=== PATIENT | female | born 1985 | race Caucasian/White ===

== ENCOUNTER 2019-11-03 01:01 | Outpatient (CLI) | payer OTHER, SELFPAY ==
[2019-11-03 17:34] LABS: SARS-CoV-2 RNA PCR Negative
== END 2019-11-03 01:02 | disposition home or self-care (01) ==
LOC: ANHCOVIDDT 01:02
PROVIDERS: PCP Family Medicine; Visit Provider Obstetrics & Gynecology
DX: Z01.812 Encounter for preprocedural laboratory examination (principal); Z11.59 Encounter for screening for other viral diseases
CPT/HCPCS: 87635; C9803; U0003

== ENCOUNTER 2019-11-03 08:37 | Outpatient (CLI) | payer OTHER, SELFPAY ==
[2019-11-03 09:19] LABS: Basophils Percent Auto 0.5 % (0.2-1.2); Eosinophils Absolute Auto 0.1 K/mm3 (0-0.3); Eosinophils Percent Auto 1.8 % (0-4.4); Hematocrit 42.9 % (37.0-47.0); Hemoglobin 14.9 g/dL (12.0-15.0); Immature Granulocyte Absolute 0.01 K/mm3 (0.00-0.031); Immature Granulocyte Percent A 0.2 % (0-0.5); Lymphocytes Absolute Auto 2.25 K/mm3 (0.9-3.2); Lymphocytes Percent Auto 34.5 % (18.3-44.2); Mean Corpuscular HGB Conc 34.7 g/dl (32-36); Mean Corpuscular Hemoglobin 30.5 pg (26-34); Mean Corpuscular Volume 87.9 fl (80-100); Mean Platelet Volume 10.1 fl (7.4-10.4); Monocytes Absolute Auto 0.6 K/mm3 (0.1-0.6); Monocytes Percent Auto 8.6 % (2.6-8.5); Neutrophils Absolute Auto 3.6 K/mm3 (1.3-6.7); Neutrophils Percent Auto 54.4 % (45.5-73.1); Platelet Count Result 262 k/mm3 (150-375); Red Blood Count 4.88 M/mm3 (4.2-5.4); Red Cell Distribution Width 12.2 % (11.5-14.5); White Blood Count 6.5 K/mm3 (4.5-10.0)
== END 2019-11-03 08:38 | disposition home or self-care (01) ==
PROVIDERS: PCP Family Medicine; Visit Provider Obstetrics & Gynecology
DX: R10.2 Pelvic and perineal pain (principal); Z01.812 Encounter for preprocedural laboratory examination
CPT/HCPCS: 36415; 85025; 86850; 86900; 86901

== ENCOUNTER 2019-11-05 01:23 | Day surgery (SDC) | payer OTHER, SELFPAY ==
[2019-10-25 13:12] VITALS: BMI 31.8
--- NOTE | 2019-11-03 07:35 | PM.IMHP ---
H&P: HPI History of Present Illness Chief complaint: Enlarged Uterus/ Pelvic Pain Narrative: Christina Reilly is a 34 year old female is admitted for robotic hysterectomy and bilateral salpingectomy. She has a uterine prolapse secondary to many previous deliveries. She has pain with any large uterus who has opted for hysterectomy. Risks and benefits were reviewed including but not exclusive of , aspiration pneumonia, bleeding, transfusion, perforation injury to bowel, bladder, ureters, or other internal organs with need for open laparotomy. She voiced good understanding. She read the [employer] handout entitled hysterectomy as well as the [facility] handout. She asked to proceed Review of Systems Review of Systems: All systems reviewed & are unremarkable except as noted in HPI and below PMFSH Social History Social History Smoking status: Never smoker Alcohol intake: current Meds Home Medications and Allergies Home Medications Medication Instructions Recorded Confirmed Type No Home Medications 10/25/19 10/25/19 History Allergies Allergy/AdvReac Type Severity Reaction Status Date / Time Cephalosporins Allergy Severe Anaphylaxis Verified 10/25/19 13:05 Penicillins Allergy Severe Anaphylaxis Verified 10/25/19 13:05 pomegranate Allergy Severe Anaphylaxis Verified 10/25/19 13:05 vancomycin Allergy Intermediate Itching Verified 10/25/19 13:05 Exam Const: General: no acute distress Eyes: General: appearance normal, both eyes and all related structures Neck: Neck: supple and no JVD Thyroid: thyroid normal Resp: Effort & Inspection: normal respiratory effort Auscultation: clear to auscultation bilaterally Cardio: Rate: regular rate Rhythm: regular rhythm GI: Inspection: non-distended GI Palp: Yes Soft to palpation, No Tenderness to palpation present (GI) and No Guarding due to palpation present (GI) Auscultation: normal bowel sounds : General: Yes bladder normal to inspection External Female Exam: normal external appearance Speculum Exam - Vagina: normal appearance of the vagina Speculum Exam - Cervix: Patulous cervix present Bimanual exam- vagina & uterus: enlarged and Uterus displaced ( second-degree prolapse is noted) Skin: General skin exam: no rashes or lesions noted Extrem: General: normal to inspection and no edema Psych: Mental Status: mental status grossly normal Affect: normal affect Assessment and Plan Additional Plan impression: Enlarged uterus with prolapse Plan: Robotic total vaginal hysterectomy and bilateral salpingectomy
[2019-11-05] VITALS (18 sets, daily range): BP systolic 110–140; BP diastolic 56–84; PULSE 56–97; RESP 11–24; TEMP 35.9–37.2; O2SAT 92–100
--- NOTE | 2019-11-05 06:43 | WPDHPUPDATE1 ---
History and Physical Update Update Date/Time: 11/05/19 06:43 History and Physical has been reviewed, including an updated exam of the patient. There are NO changes in the patient's condition. Risks, benefits, and alternatives have been discussed and questions answered. Patient agrees to proceed with procedure.
--- NOTE | 2019-11-05 07:07 | WPDANESEPPF ---
Anes - Initial Pre Proc Eval Procedure: Operation Date: 11/05/19 07:30 Proposed Procedures p Robotic Assisted Total Vaginal Hysterectomy With Bilateral Salpingectomy - Jani San MD Date/Time: 11/05/19 07:07 Surgeon: Jani San MD Pre Op Diagnosis: Enlarged Uterus/ Pelvic Pain Patient Data Age: 34 Gender: F Height: 1.63 m Weight: 84 kg Allergies Allergy/AdvReac Type Severity Reaction Status Date / Time Cephalosporins Allergy Severe Anaphylaxis Verified 10/25/19 13:05 Penicillins Allergy Severe Anaphylaxis Verified 10/25/19 13:05 pomegranate Allergy Severe Anaphylaxis Verified 10/25/19 13:05 vancomycin Allergy Intermediate Itching Verified 10/25/19 13:05 Home Medications Medication Instructions Recorded Confirmed Type hydrocodone-acetaminophen [[place]] 1 tablet PO Q4H PRN #30 tablet 11/05/19 Rx Patient hx anesthesia problems: none Family hx anesthesia problems: none PMFSH Past Medical History Medical History (Updated 11/05/19 @ 07:08 by Mina Christian MD) Mitral valve prolapse Obesity Uterine prolapse Social History Social History Smoking status: Never smoker Alcohol intake: current Anes - Eval Final PreProcedure Day of Procedure 11/05/19 07:07 Patient weight: obese Heart: regular rate and rhythm Lungs: clear to auscultation and normal air movement Airway: Mallampati scale class II Neurological: alert and oriented Last oral intake: >/= 8 hours ASA classification: II Emergent: no Anesthetic plan: proceed Anesthesia type and monitoring: general ETT Informed Consent: The patient's anesthetic plan and its attendant risks and benefits were discussed with the patient/family/POA. Questions were solicited and answers provided to the satisfaction of the patient/family/POA.
[2019-11-05] MEDS: LACTATED RINGERS 1,000 ML 30 ML IV CONT ×2 (07:17→08:54)
[2019-11-05] MEDS: CLINDAMYCIN 900 MG/NS 50 ML 900 MG/50 ML PIGGYBACK 50 MG IVPB (07:23)
[2019-11-05] MEDS: GENTAMICIN SULFATE INJ 330 MG in DEXTROSE 5% 100 ML 100 MG IVPB (07:35)
[2019-11-05] MEDS: KETOROLAC 30 MG/ML VIAL (*BKC) IV PUSH ×2 (08:00→13:49)
--- NOTE | 2019-11-05 08:45 | PM.PROC ---
Procedure Note - Detailed Date of procedure: 11/05/19 Pre-op diagnosis: Enlarged Uterus/ Pelvic Pain Surgeon: Jani San MD Postop diagnosis: Enlarged uterus/pelvic pain Procedure: Robotic total vaginal hysterectomy and bilateral salpingectomies Anesthesia: General endotracheal EBL: 25cc Complications: Findings: Enlarged uterus. Normal-appearing ovaries and tubes Description of the procedure: The patient was prepped draped in the sterile fashion placed in the dorsal lithotomy position. Under excellent general trach anesthesia weighted speculum placed in posterior fornix of vagina. Anterior lip of the cervix was grasped with single-tooth tenaculum. Uterus sounded to 10cm. Serial dilatation with fragmented dilators performed. The 10. Cold cup at the 3 and half CECILIA was placed in the uterus for uterine manipulation. Next the 16 [place] catheter was placed and drained. Gloves were changed. A supraumbilical incision made the Veress needle passed abdomen. The abdomen was filled with CO2 gas 15mmHg. The 8mm trocar was then advanced in the abdomen the downside was visualized. No injury seen the patient placed in Trendelenburg. Right and left lateral quadrant incision made the 8mm trocars advanced under direct visualization assuring no injury. A right upper quadrant incision made in the 10mm trocar advanced under direct visualization. No injury seen robot was docked Attention was turned to the console. The above findings were noted. The left round ligament was grasped, burned, cut. Anteriorly a bladder flap was formed by sharply dissecting across the uterine cervix and reflecting the bladder distally from the uterus and cervix to the opposite round ligament. This was then clamped, burned, cut. Next the left fallopian tube was teased away from the ovary and brought to its insertion into the uterus this was repeated on the contralateral side to remove the right tube. Next the utero-ovarian ligament was serially skeletonized, clamped, burned, cut and brought to the level of the previously cut round ligament this was repeated on the opposite side conserving the right ovary. The left cardinal and broad ligaments were then serially skeletonized down the lateral edge of the uterus and cervix by clamping cutting and burning. Blood vessels on the left were noted to be tortuous and large these were serially skeletonized after individualized them. They were clamped, burned, cut and brought down to the uterine cervix. In like fashion the cardinal and broad ligaments on the right were serially skeletonized, clamped, burned, cut and brought down to the uterine vessels on the right these were also large and tortuous and individually clamped, burned, cut. Excellent blanching of the cervix and uterus were noted. A colpotomy incision was made and the cervix uterus and tubes removed through the vagina. Blood loss was estimated 25cc. The vagina was closed with continuous running 0V lock from lateral edge to lateral edge and back to the midline. Irrigation was undertaken until clear. Hematuria was placed over the raw surface areas and excellent hemostasis was seen. The robot was undocked. The gas removed from the abdomen. The trocar sites removed and the incisions closed with 4 O Monocryl and glue. The patient was awakened. All sponge, needle, instrument counts were correct. There were no immediate complications
--- NOTE | 2019-11-05 09:52 | SUR.PHASEI ---
PT C/O'ING BEING COLD. WARM BLANKETS X 2 APPLIED. AWAITING CALL BACK FROM 2ND FLOOR OB.
[2019-11-05] MEDS: DEXTROSE 5%/LACTATED RINGERS 1,000 ML 125 ML IV CONT (10:43)
[2019-11-05] MEDS: MORPHINE SULFATE 4 MG/ML INJ IV PUSH (10:52)
[2019-11-05] MEDS: ENOXAPARIN 40 MG/0.4 ML SYRINGE SUB-Q (13:50)
[2019-11-05] MEDS: SIMETHICONE 80 MG TAB.CHEW PO (13:51)
[2019-11-05] MEDS: ONDANSETRON INJ 4 MG/2 ML VIAL IV PUSH (17:52)
[2019-11-05] MEDS: IBUPROFEN 600 MG TABLET PO (23:37)
[2019-11-06 04:00] VITALS: BP 112/61; PULSE 75; RESP 17; TEMP 36.7
[2019-11-06] MEDS: SIMETHICONE 80 MG TAB.CHEW PO ×3 (04:27→11:53)
[2019-11-06 05:34] LABS: Basophils Percent Auto 0.3 % (0.2-1.2); Eosinophils Percent Auto 0.3 % (0-4.4); Hematocrit 37.8 % (37.0-47.0); Hemoglobin 12.8 g/dL (12.0-15.0); Immature Granulocyte Absolute 0.06 K/mm3 (0.00-0.031); Immature Granulocyte Percent A 0.5 % (0-0.5); Lymphocytes Absolute Auto 3.09 K/mm3 (0.9-3.2); Lymphocytes Percent Auto 23.6 % (18.3-44.2); Mean Corpuscular HGB Conc 33.9 g/dl (32-36); Mean Corpuscular Hemoglobin 30.5 pg (26-34); Mean Corpuscular Volume 90.2 fl (80-100); Mean Platelet Volume 10.5 fl (7.4-10.4); Monocytes Percent Auto 7.8 % (2.6-8.5); Neutrophils Absolute Auto 8.8 K/mm3 (1.3-6.7); Neutrophils Percent Auto 67.5 % (45.5-73.1); Platelet Count Result 224 k/mm3 (150-375); Red Blood Count 4.19 M/mm3 (4.2-5.4); Red Cell Distribution Width 12.4 % (11.5-14.5); White Blood Count 13.1 K/mm3 (4.5-10.0)
--- NOTE | 2019-11-06 07:20 | P.DS_ITS ---
DS: Admitting Diagnosis Admitting Diagnosis Admitting Diagnosis: Pelvic and perineal pain DS: Summary Time Spent with Patient Time attestation: Total time spent providing and/or coordinating discharge services: Exam Const: General: no acute distress Eyes: General: appearance normal, both eyes and all related structures Neck: Neck: supple and no JVD Thyroid: thyroid normal Resp: Effort & Inspection: normal respiratory effort Auscultation: clear to auscultation bilaterally Cardio: Rate: regular rate Rhythm: regular rhythm GI: Inspection: non-distended GI Palp: Yes Soft to palpation, No Tenderness to palpation present (GI) and No Guarding due to palpation present (GI) Auscultation: normal bowel sounds : General: Yes bladder normal to palpation External Female Exam: normal external appearance Speculum Exam - Vagina: normal vaginal discharge and No vaginal bleeding Speculum Exam - Cervix: nontender Bimanual exam- vagina & uterus: bladder normal to palpation and No Cervical tenderness present OB/external & speculum: No vaginal bleeding Skin: General skin exam: no rashes or lesions noted Extrem: General: normal to inspection and no edema Psych: Mental Status: mental status grossly normal Affect: normal affect DS: Data Data Completed and Pending Pending studies at discharge: Pending at discharge 11/05/19 07:55 Surgical [PTH] Routine Labs on day of discharge: Labs from last 24 hours 11/06/19 04:10 WBC 13.1 H RBC 4.19 L Hgb 12.8 Hct 37.8 MCV 90.2 MCH 30.5 MCHC 33.9 RDW 12.4 Plt Count 224 MPV 10.5 H Immature Gran % (Auto) 0.5 Neut % (Auto) 67.5 Lymph % (Auto) 23.6 [place] % (Auto) 7.8 Eos % (Auto) 0.3 Baso % (Auto) 0.3 Lymph # (Auto) 3.09 [place] # (Auto) 1.0 H Eos # (Auto) 0.0 Baso # (Auto) 0.0 Abs Immat Gran (auto) 0.06 H Absolute Neuts (auto) 8.8 H Absolute Nucleated RBC 0.0 Nucleated RBC % 0.0 Discharge Plan Discharge Patient Disposition: Home, Self-Care Stand Alone Forms: General Discharge Instructions Follow-up/Referrals: Jani San MD [Physician] - Discharge Medications: New hydrocodone-acetaminophen [[place]] 5-325 mg tablet 1 tablet PO Q4H PRN (Reason: pain) Qty: 30 RF: 0
--- NOTE | 2019-11-06 07:21 | P.PNOB_ITS ---
OB - PN: Subj Subjective Date/time seen: 11/06/19 07:21 Patient comments: no complaints and pain well controlled OB - PN: Obj Data Labs CBC & Chem 7: 11/06/19 04:10 Labs: Laboratory Results - last 24 hr 11/06/19 04:10 WBC 13.1 H RBC 4.19 L Hgb 12.8 Hct 37.8 MCV 90.2 MCH 30.5 MCHC 33.9 RDW 12.4 Plt Count 224 MPV 10.5 H Immature Gran % (Auto) 0.5 Neut % (Auto) 67.5 Lymph % (Auto) 23.6 [place] % (Auto) 7.8 Eos % (Auto) 0.3 Baso % (Auto) 0.3 Lymph # (Auto) 3.09 [place] # (Auto) 1.0 H Eos # (Auto) 0.0 Baso # (Auto) 0.0 Abs Immat Gran (auto) 0.06 H Absolute Neuts (auto) 8.8 H Absolute Nucleated RBC 0.0 Nucleated RBC % 0.0 OB - PN A/P Plan day: 1 Plan: routine care, discharge home and follow up 6 weeks (2 weekks) Time Spent With Patient Time: Total time spent is greater than 50% in coordination of care (as documented) at patient's floor/unit and/or counseling patient: Time with patient: less than 15 minutes Review of Systems Review of Systems: All systems reviewed & are unremarkable except as noted in HPI and below Exam Const: General: no acute distress Eyes: General: appearance normal, both eyes and all related structures Neck: Neck: supple and no JVD Thyroid: thyroid normal Resp: Effort & Inspection: normal respiratory effort Auscultation: clear to auscultation bilaterally Cardio: Rate: regular rate Rhythm: regular rhythm GI: Inspection: normal to inspection and incision (cdi) : General: Yes bladder normal to palpation External Female Exam: normal external appearance Speculum Exam - Vagina: normal vaginal discharge and No vaginal bleeding Speculum Exam - Cervix: nontender Bimanual exam- vagina & uterus: bladder normal to palpation and No Cervical tenderness present OB/external & speculum: No vaginal bleeding Skin: General skin exam: no rashes or lesions noted Extrem: General: normal to inspection and no edema Psych: Mental Status: mental status grossly normal Affect: normal affect
--- NOTE | 2019-11-06 07:23 | PM.DS ---
DS: Admitting Diagnosis Admitting Diagnosis Admitting Diagnosis: Pelvic and perineal pain DS: Summary Time Spent with Patient Time attestation: Total time spent providing and/or coordinating discharge services: DS: Data Data Completed and Pending Pending studies at discharge: Pending at discharge 11/05/19 07:55 Surgical [PTH] Routine Labs on day of discharge: Labs from last 24 hours 11/06/19 04:10 WBC 13.1 H RBC 4.19 L Hgb 12.8 Hct 37.8 MCV 90.2 MCH 30.5 MCHC 33.9 RDW 12.4 Plt Count 224 MPV 10.5 H Immature Gran % (Auto) 0.5 Neut % (Auto) 67.5 Lymph % (Auto) 23.6 [place] % (Auto) 7.8 Eos % (Auto) 0.3 Baso % (Auto) 0.3 Lymph # (Auto) 3.09 [place] # (Auto) 1.0 H Eos # (Auto) 0.0 Baso # (Auto) 0.0 Abs Immat Gran (auto) 0.06 H Absolute Neuts (auto) 8.8 H Absolute Nucleated RBC 0.0 Nucleated RBC % 0.0 Discharge Plan Discharge Patient Disposition: Home, Self-Care Stand Alone Forms: General Discharge Instructions Follow-up/Referrals: Jani San MD [Physician] - Discharge Medications: New hydrocodone-acetaminophen [[place]] 5-325 mg tablet 1 tablet PO Q4H PRN (Reason: pain) Qty: 30 RF: 0
[2019-11-06] MEDS: DOCUSATE SODIUM 100 MG CAPSULE PO (08:18)
[2019-11-06] MEDS: IBUPROFEN 600 MG TABLET PO ×2 (08:19→14:11)
[2019-11-06] MEDS: ENOXAPARIN 40 MG/0.4 ML SYRINGE SUB-Q (08:21)
--- NOTE | 2019-11-06 09:34 | P.PNAN_ITS ---
Anes - Prog Note Post-Op Date/Time: 11/06/19 09:34 Cardiovascular status: normal Respiratory status: normal Airway patency: baseline Mental status: baseline Post-Op hydration status: normal Vital Signs: Last Vital Signs Temp 36.7 C 11/06/19 04:00 Pulse 75 11/06/19 04:00 Resp 17 11/06/19 04:00 BP 112/61 11/06/19 04:00 Pulse Ox 97 11/05/19 14:00 Pain Score (VAS): 0/10. Patient resting in bed at time of assessment, nausea with relief with PRN medication. I/O: Intake & Output 11/05/19 11/06/19 11/06/19 23:59 07:59 15:59 Intake Total 550 1250 Output Total 400 1950 Balance 150 -700 Laboratory Tests 11/06/19 04:10 11/06/19 04:10 WBC 13.1 H RBC 4.19 L Hgb 12.8 Hct 37.8 MCV 90.2 MCH 30.5 MCHC 33.9 RDW 12.4 Plt Count 224 MPV 10.5 H Immature Gran % (Auto) 0.5 Neut % (Auto) 67.5 Lymph % (Auto) 23.6 [place] % (Auto) 7.8 Eos % (Auto) 0.3 Baso % (Auto) 0.3 Lymph # (Auto) 3.09 [place] # (Auto) 1.0 H Eos # (Auto) 0.0 Baso # (Auto) 0.0 Abs Immat Gran (auto) 0.06 H Absolute Neuts (auto) 8.8 H Absolute Nucleated RBC 0.0 Nucleated RBC % 0.0 Post-procedural complaints: none Patient Feedback: Patient satisfied with anesthetic care.
[2019-11-06 10:00] VITALS: BP 116/77; PULSE 65; RESP 16; TEMP 37.1; O2SAT 98
== END 2019-11-06 14:50 | disposition home or self-care (01) ==
LOC: ANHSURGERY 06:44 → ANHOB2 10:24
PROVIDERS: PCP Family Medicine; Visit Provider Obstetrics & Gynecology
PROC: (CPT 58552; principal; 2019-11-05 07:30)
DX: R10.2 Pelvic and perineal pain (principal); N80.0 Endometriosis of uterus; N83.8 Other noninflammatory disorders of ovary, fallopian tube and broad ligament; I34.1 Nonrheumatic mitral (valve) prolapse; E66.9 Obesity, unspecified; Z68.31 Body mass index [BMI] 31.0-31.9, adult
CPT/HCPCS: 58552; S2900; 36415; 85025; 88307; 99199; A9270; J1100; J1580; J1650; J1885; J2250; J2270; J2405; J2704; J2710; J3010; J7030; J7120; J7121

== ENCOUNTER 2021-01-23 11:51 | Outpatient (CLI) | payer OTHER, SELFPAY ==
--- NOTE | ~2021-01-23 | XR_ITS ---
XR hip RT min 2V DATE: 01/23/2021 12:10 INDICATION: Right hip pain. Low back pain. TECHNIQUE: AP and lateral views COMPARISON: None FINDINGS: No fracture or dislocation, avascular necrosis or bone destruction of the right hip. Right hip joint space appears well preserved. The pubic symphysis and right sacroiliac joint are intact. IMPRESSION: Negative Reviewed, dictated and finalized at location A. IMPRESSION: Negative
--- NOTE | ~2021-01-23 | XR_ITS ---
XR lumbar spine 2-3V DATE: 01/23/2021 12:10 INDICATION: Chronic low back pain. No injury. TECHNIQUE: AP, lateral, coned lateral lumbosacral views COMPARISON: None FINDINGS: There is minimal dextroscoliosis. There are 4 functional lumbar vertebrae. There is a transitional lumbosacral vertebra. No fracture, spondylolisthesis or bone destruction. The included lower thoracic and lumbar pedicles a re intact. The sacroiliac joints appear normal. Status post cholecystectomy. 5.6 x 13.6 mm calcification overlies the proximal right ureter. This was not present on 02/03/2007. Di fference diagnosis includes an opacity within the bowel lumen versus large calcified right ureteropel amber calculus. There are small calcifications overlying the lower pole of each kidney; bilateral nephrolithiasis is suggested. Noncontrast CT abdomen pelvis examination would be more accurate for detection of any urin rajesh tract calculi. There is a prominent amount of fecal material in the colon but no apparent bowel obstruction. The psoas shadows are intact. No visceromegaly is noted. IMPRESSION: Cannot exclude bilateral nephrolithiasis or large right ureteropelvic calcified calculus Status post cholecystectomy Transitional lumbosacral vertebra Reviewed, dictated and finalized at location A. IMPRESSION: Cannot exclude bilateral nephrolithiasis or large right ureteropelv ic calcified calculus Status post cholecystectomy Transitional lumbosacral vertebra
--- NOTE | ~2021-01-23 | XR_ITS ---
XR hip LT min 2V DATE: 01/23/2021 12:11 INDICATION: Left hip pain. Low back pain. TECHNIQUE: AP and lateral views of left hip COMPARISON: None FINDINGS: The pubic symphysis and sacroiliac joints appear normal. No fracture, dislocation, avascular necrosis or bone destruction of the left hip. Left hip joint spac e appears well preserved. IMPRESSION: Negative Reviewed, dictated and finalized at location A. IMPRESSION: Negative
== END 2021-01-23 11:52 | disposition home or self-care (01) ==
PROVIDERS: PCP Family Medicine; Visit Provider Nurse Practitioner Family
DX: M25.551 Pain in right hip (principal); M25.552 Pain in left hip; Z90.49 Acquired absence of other specified parts of digestive tract
CPT/HCPCS: 72100; 73502; 73521

== ENCOUNTER 2021-01-29 13:34 | Outpatient (CLI) | payer OTHER, SELFPAY ==
--- NOTE | ~2021-01-29 | CT_ITS ---
EXAMINATION: CT abdomen pelvis wo con EXAM DATE: 01/29/2021 13:51 INDICATION: N20.1 - Calculus of ureter. TECHNIQUE: Spiral CT of the abdomen and pelvis was performed without contrast. Axial, coronal and s agittal images of the abdomen and pelvis were reviewed. The dose-length product (DLP) for this exami nation was 354.50 mGy-cm. The exposure was tailored according to patient size (auto mA exposure cont rol), and iterative reconstruction (ASIR) was used as additional dose reduction technique. Comparison is made to prior examination from 01/14/2017. FINDINGS: The liver, spleen, adrenal glands and pancreas are unremarkable. There are cholecystectomy clips. There is right ureteropelvic junction stone measuring up to 10 mm on coronal image. There is mild to moderate right-sided hydronephrosis. Additional bilateral calyceal stones up to 4 mm in size . The uterus is not identified and has likely been surgically resected. The bladder is unremarkable . There is no retroperitoneal or pelvic lymphadenopathy. There are no findings to suggest appendicitis. The stomach and small bowel are unremarkable. There is moderate amount of colonic stool. No free intraperitoneal gas. The heart is normal in size. T here are no pericardial or pleural effusions. The lung bases are unremarkable. There are no osteobl astic or osteolytic lesions identified. IMPRESSION: 1. Right UPJ 10 mm stone, mild to moderate hydronephrosis. 2. Bilateral nephrolithiasis. I discussed kidney stones with JAMES Shukla at 01/30/2021 10:09 CDT. Reviewed, dictated and finalized at location B.
== END 2021-01-29 13:35 | disposition home or self-care (01) ==
LOC: ANHIMG 13:36
PROVIDERS: PCP Family Medicine; Visit Provider Nurse Practitioner Family
DX: N20.2 Calculus of kidney with calculus of ureter (principal)
CPT/HCPCS: 74176

== ENCOUNTER 2021-02-22 07:57 | Outpatient (CLI) | payer OTHER, SELFPAY ==
--- NOTE | ~2021-02-22 | XR_ITS ---
EXAMINATION: XR abdomen/kub 1V EXAM DATE: 02/22/2021 08:30 INDICATION: RT renal kidney stones . TECHNIQUE: Frontal projection of the upper abdomen, frontal projection lower abdomen/pelvis for inter pretation. Correlation is made to CT abdomen pelvis from 01/29/2021. FINDINGS: Prior CT had 10 mm UPJ stone. There is no calcification identified in this location on thi s examination. There are smaller bilateral kidney stones. Nonobstructive bowel gas pattern with moder ate amount of colonic stool. There is no organomegaly. There are cholecystectomy clips. There are no osseous abnormalities identified. IMPRESSION: Bilateral nephrolithiasis. Reviewed, dictated and finalized at location A. IMPRESSION: Bilateral nephrolithiasis.
== END 2021-02-22 07:58 | disposition home or self-care (01) ==
LOC: ANHIMG 07:59
PROVIDERS: PCP Family Medicine; Visit Provider Urology
DX: N20.0 Calculus of kidney (principal)
CPT/HCPCS: 74018

== ENCOUNTER 2021-03-05 11:30 | Outpatient (CLI) | payer OTHER, SELFPAY ==
--- NOTE | ~2021-03-05 | XR_ITS ---
EXAMINATION: XR abdomen/kub 1V INDICATION: Right flank pain TECHNIQUE: Supine views of the abdomen were obtained on 2 radiographs. COMPARISON: 02/22/[address] from today FINDINGS: A 6 mm stone has migrated from the right kidney lower pole to the proximal ureter just belo w the right L3 transverse process. There is an unchanged 4 mm stone of the left kidney. Cholecystecto my clips are noted. The lung bases are clear. A moderate volume of colonic stool is present. IMPRESSION: 1. 6 mm stone in the proximal right ureter. 2. Left nephrolithiasis. Reviewed, dictated and finalized at location A.
== END 2021-03-05 11:31 | disposition home or self-care (01) ==
LOC: ANHIMG 11:32
PROVIDERS: PCP Family Medicine; Visit Provider Urology
DX: N20.2 Calculus of kidney with calculus of ureter (principal)
CPT/HCPCS: 74018

== ENCOUNTER 2021-03-05 14:25 | Outpatient (CLI) | payer OTHER, SELFPAY ==
--- NOTE | ~2021-03-05 | CT_ITS ---
EXAMINATION: CT abdomen pelvis wo con DATE: 03/05/2021 14:47 INDICATION: Right flank pain TECHNIQUE: Computed tomography (CT) of the abdomen and pelvis was performed without intravenous contr ast. The dose-length product (DLP) was 939.66 mGy-cm. Automated exposure control and iterative recons truction technique were employed. COMPARISON: 01/29/2021 FINDINGS: The lung bases are clear. The heart size is normal. The gallbladder is surgically absent. T he liver, spleen, pancreas, and adrenal glands are normal. There is a 4 mm stone of the proximal righ t ureter which causes mild hydronephrosis. Nonobstructing stones of the right kidney measure up to 5 mm. Nonobstructing stones of the left kidney measure up to 6 mm. No pathologically enlarged abdominal or pelvic lymph nodes are identified. There is no free intraperitoneal gas or evidence of bowel obst ruction. The appendix is normal. IMPRESSION: 1. 4 mm stone of the proximal right ureter causing mild hydronephrosis. 2. Bilateral nonobstructing nephrolithiasis. Reviewed, dictated and finalized at location A.
== END 2021-03-05 14:26 | disposition home or self-care (01) ==
LOC: ANHIMG 14:25
PROVIDERS: PCP Family Medicine; Visit Provider Nurse Practitioner Adult Health
DX: R10.9 Unspecified abdominal pain (principal); N20.2 Calculus of kidney with calculus of ureter
CPT/HCPCS: 74018; 74176

== ENCOUNTER 2021-03-06 01:22 | Day surgery (SDC) | payer OTHER, SELFPAY ==
[2021-03-05 15:55] VITALS: BMI 33.5
[2021-03-06] VITALS (9 sets, daily range): BP systolic 124–143; BP diastolic 80–96; PULSE 53–97; RESP 12–16; TEMP 36.2–37.1; O2SAT 94–99
--- NOTE | ~2021-03-06 | XR_ITS ---
EXAMINATION: XR retrograde pyelo w/stent RT EXAM DATE: 03/06/2021 14:10 INDICATION: Right-sided retrograde stent placement. TECHNIQUE: Fluoroscopy used during XR retrograde pyelo w/stent RT performed by Dr. Delroy collins MD, urologist. The radiologist Nile Silveira M.D. dictating this report of the image(s) availabl e was not present for the procedure. Total fluoroscopic time of 37 seconds. The DAP for this proced ure was 596 radcm2. A total of 15 images sent to PACS from the exam. FINDINGS: Images demonstrate cannulation of the right ureter, retrograde pyelogram demonstrating mil d hydronephrosis. Cholecystectomy clips. One image demonstrates proximal loop of a double-J ureteral stent. Correlate with procedure note. IMPRESSION: Fluoroscopy used during XR retrograde pyelo w/stent RT. Reviewed, dictated and finalized at location B.
--- NOTE | 2021-03-06 08:00 | P.PNAN_ITS ---
Anes - Initial Pre Proc Eval Procedure: Operation Date: 03/06/21 14:00 Proposed Procedures p Cystoscopy, Right Ureteroscopy with Stone Extraction, Possible Right Retrograde Pyelogram, Possible Right Stent Placement, - Delroy Shah MD s Possible Holmium Laser Procedure - Delroy Shah MD Date/Time: 03/06/21 08:00 Surgeon: Delroy Shah MD Pre Op Diagnosis: right proximal ureteral stone Patient Data Age: 35 Gender: F Height: 1.63 m Weight: 88.45 kg Allergies Allergy/AdvReac Type Severity Reaction Status Date / Time Cephalosporins Allergy Severe Anaphylaxis Verified 03/06/21 12:46 Penicillins Allergy Severe Anaphylaxis Verified 03/06/21 12:46 pomegranate Allergy Severe Anaphylaxis Verified 03/06/21 12:46 vancomycin Allergy Intermediate Itching Verified 03/06/21 12:46 Home Medications Medication Instructions Recorded Confirmed Type lorazepam 0.5 mg tablet 0.5 mg PO BID PRN #30 tablet 11/17/20 03/05/21 Rx acetaminophen 300 mg-codeine 15 mg 1 tablet PO BID PRN #30 tablet 01/23/21 03/05/21 Rx tablet fexofenadine [Rosangela] 180 mg PO HS 03/05/21 03/05/21 History sertraline 100 mg PO HS 03/05/21 03/05/21 History tramadol 50 mg PO Q6H PRN 03/05/21 03/05/21 History Patient hx anesthesia problems: post op nausea/vomiting Family hx anesthesia problems: none Results Review: All pre-operative results and documents have been reviewed as part of the pre-operative evaluation. [facility] Past Medical History Medical History (Updated 03/06/21 @ 08:00 by Dennis Mccarthy DO) Anxiety Mitral valve prolapse Obesity PONV (postoperative nausea and vomiting) Uterine prolapse Surgical History Surgical History (Updated 03/06/21 @ 08:00 by Dennis Mccarthy DO) History of cholecystectomy History of hysterectomy Social History Social History Smoking status: Never smoker Alcohol intake: never Substance use: never Substance use type: does not use Living arrangements: with family Additional occupation/education comments: Stay at home mom Gender identity (if verbalized by the patient): Female Sexual Orientation (if Verbalized by the Patient): Straight or Heterosexual Spiritual care concerns: No Anes - Eval Final PreProcedure Day of Procedure 03/06/21 08:00 Patient weight: obese Heart: regular rate and rhythm Lungs: clear to auscultation and normal air movement Airway: Mallampati scale class II Neurological: alert and oriented Last oral intake: >/= 8 hours ASA classification: II Emergent: no Anesthetic plan: proceed Anesthesia type and monitoring: general LMA and standard monitoring Results Review: All pre-operative results and documents have been reviewed as part of the pre-operative evaluation. Informed Consent: The patient's anesthetic plan and its attendant risks and benefits were discussed with the patient/family/POA. Questions were solicited and answers provided to the satisfaction of the patient/family/POA.
[2021-03-06] MEDS: LACTATED RINGERS 1,000 ML 30 ML IV CONT ×2 (12:30→14:13)
[2021-03-06] MEDS: SCOPOLAMINE 1.5 MG PATCH TRANSDERM (13:02)
--- NOTE | 2021-03-06 13:11 | P.HP_ITS ---
H&P: HPI History of Present Illness Date/Time: 03/06/21 13:11 Chief Complaint: right ureteral calculus Narrative: 35 year old with obstructing 4-6 mm right proximal ureteral calculus. Presents for intervention today. Review of Systems Review of Systems: All systems reviewed & are unremarkable except as noted in HPI and below [facility] Past Medical History Medical History Anxiety Mitral valve prolapse Obesity PONV (postoperative nausea and vomiting) Uterine prolapse Surgical History Surgical History (Updated 03/06/21 @ 08:00 by Dennis Mccarthy DO) History of cholecystectomy History of hysterectomy Social History Social History Smoking status: Never smoker Alcohol intake: never Substance use: never Substance use type: does not use Living arrangements: with family Additional occupation/education comments: Stay at home mom Gender identity (if verbalized by the patient): Female Sexual Orientation (if Verbalized by the Patient): Straight or Heterosexual Spiritual care concerns: No Meds Home Medications and Allergies Home Medications Medication Instructions Recorded Confirmed Type lorazepam 0.5 mg tablet 0.5 mg PO BID PRN #30 tablet 11/17/20 03/06/21 Rx acetaminophen 300 mg-codeine 15 mg 1 tablet PO BID PRN #30 tablet 01/23/21 03/06/21 Rx tablet fexofenadine [Rosangela] 180 mg PO HS 03/05/21 03/06/21 History sertraline 100 mg PO HS 03/05/21 03/06/21 History tramadol 50 mg PO Q6H PRN 03/05/21 03/06/21 History Allergies Allergy/AdvReac Type Severity Reaction Status Date / Time Cephalosporins Allergy Severe Anaphylaxis Verified 03/06/21 12:46 Penicillins Allergy Severe Anaphylaxis Verified 03/06/21 12:46 pomegranate Allergy Severe Anaphylaxis Verified 03/06/21 12:46 vancomycin Allergy Intermediate Itching Verified 03/06/21 12:46 Vital Signs Vital Signs - 24 hr 03/06/21 12:47 Temperature 37.1 C Pulse Rate 80 Respiratory Rate 16 Blood Pressure 136/80 Pulse Oximetry 99 Exam Const: General: cooperative and healthy appearing Eyes: General: appearance normal, both eyes and all related structures Resp: Effort & Inspection: normal respiratory effort Cardio: Rate: regular rate Rhythm: regular rhythm Assessment and Plan Assessment and plan (1) Ureter, calculus: Code(s): N20.1 - Calculus of ureter Status: Acute Assessment and Plan: Proceed with cysto, right retrograde, right ureteroscopy with stone extraction, possible laser and stent placement.
--- NOTE | 2021-03-06 13:11 | WPDHPUPDATE1 ---
History and Physical Update Update Date/Time: 03/06/21 13:11 History and Physical has been reviewed, including an updated exam of the patient. There are NO changes in the patient's condition. Risks, benefits, and alternatives have been discussed and questions answered. Patient agrees to proceed with procedure. Proceed with cysto, right rpg, right ureteroscopy with stone extraction, laser , stent placement
[2021-03-06] MEDS: levoFLOXacin 500 MG/D5W 100 ML 500 MG/100 ML BAG 100 MG IVPB (13:27)
[2021-03-06] MEDS: LIDOCAINE HCL 2% GEL UROJET 10 ML PKG MUCOUS MEM (14:03)
--- NOTE | 2021-03-06 14:07 | W.PM.PROC2 ---
Procedure Note - Detailed Date of Procedure 03/06/21 Pre-op Diagnosis right proximal ureteral stone Post-op Diagnosis same Procedure Performed Cystoscopy, right retrograde pyelogram, right ureteroscopy with stone extraction, right ureteral stent placement 4.8 [place] contour Surgeon Delroy Shah MD Anesthesia general Description of Procedure Patient is taken to the operative suite correctly identified. Once anesthesia was obtained she was placed in dorsal lithotomy position and prepped and draped usual sterile fashion. Twenty-two [place]ican scope inserted the bladder. Right ureteral orifice was cannulated with a guidewire. There were no tumors noted the bladder. Ureteral access sheath was then placed. Mini flexible ureteral scope was inserted. The stone was visualized. Using an escape basket we were able to retrieve it. Reinspection of the kidney revealed just some very small fragments too small to retrieve. Pyelogram was then performed to confirm placement of stent. 4.8 [place] contour stent was placed with the proximal end coiled in the renal pelvis and the distal and in the bladder. Scope was removed. 2% viscous lidocaine was inserted into the urethra. Patient is taken recovery stable condition. She will follow up in a week's time for stent removal. Drains Yes Packing No Pathology yes Complications No immediate complications Condition stable Disposition PACU
[2021-03-06] MEDS: fentaNYL CITRATE INJ (*CRX) 100 MCG/2 ML VIAL 25 MCG IV PUSH ×2 (14:49→14:52)
[2021-03-06] MEDS: oxyCODONE HCL (*CRX) 5 MG TAB IR PO (16:21)
== END 2021-03-06 17:26 | disposition home or self-care (01) ==
PROVIDERS: PCP Family Medicine; Visit Provider Urology
PROC: (CPT 52352; principal; 2021-03-06 14:00)
DX: N13.2 Hydronephrosis with renal and ureteral calculous obstruction (principal); I34.1 Nonrheumatic mitral (valve) prolapse; F41.9 Anxiety disorder, unspecified; E66.9 Obesity, unspecified; Z68.33 Body mass index [BMI] 33.0-33.9, adult
CPT/HCPCS: 52332; 52352; 74420; 82365; 88300; A9270; C1758; C1769; C2617; J1100; J1956; J2250; J2405; J2704; J3010; J7120; Q9966

== ENCOUNTER → 2021-05-09 15:29 | Outpatient (CLI) | payer OTHER, SELFPAY ==
--- NOTE | ~2021-05-09 | XR_ITS ---
EXAMINATION: XR finger 4th RT min 2V DATE: 05/09/2021 15:46 INDICATION: Pain at the right fourth digit post blunt trauma TECHNIQUE: Dorsal palmar, lateral and 2 oblique views of the left fourth digit were obtained COMPARISON: None FINDINGS: Bone alignment is normal. No fracture. Joint spaces are normal. Soft tissues are unremarkable. IMPRESSION: 1. Negative right fourth digit radiographs. Reviewed, dictated and finalized at location A. ESMITH
== END ==
PROVIDERS: PCP Family Medicine; Visit Provider Physician Assistant
DX: M79.644 Pain in right finger(s) (principal)
CPT/HCPCS: 73140

== ENCOUNTER → 2021-05-16 02:43 | Outpatient (CLI) | payer OTHER, SELFPAY ==
[2021-05-17 14:36] LABS: SARS-CoV-2 RNA PCR Negative
== END ==
PROVIDERS: PCP Family Medicine; Visit Provider Nurse Practitioner Family
DX: R05.9 Cough, unspecified (principal); Z20.822 Contact with and (suspected) exposure to COVID-19
CPT/HCPCS: C9803; U0003; U0005

== ENCOUNTER 2021-09-12 10:28 | Outpatient (CLI) | payer OTHER, SELFPAY ==
--- NOTE | ~2021-09-12 | XR_ITS ---
EXAM: XR abdomen/kub 1V HISTORY: RIGHT URETERAL STONE COMPARISON: None available FINDINGS: Clear lung bases. Normal bowel gas pattern. No organomegaly. Cholecystectomy. 6mm right u reteral calcification not visualized. Stable 4 mm left renal calcification. Regional bones and soft t issues normal for age. IMPRESSION: Right ureteral stone no longer visualized, possibly passed in the interval or obscured by artifact. Reviewed, dictated and finalized at location K. IMPRESSION: Right ureteral stone no longer visualized, possibly passed in the interval or o bscured by artifact.
== END 2021-09-12 10:29 | disposition home or self-care (01) ==
PROVIDERS: PCP Family Medicine; Visit Provider Urology
DX: N20.1 Calculus of ureter (principal)
CPT/HCPCS: 74018

== ENCOUNTER 2022-01-10 01:17 | Day surgery (SDC) | payer OTHER, SELFPAY ==
[2021-12-28 14:16] VITALS: BMI 33.7
[2022-01-10 06:55] VITALS: BP 117/80; PULSE 100; RESP 18; TEMP 36.2; O2SAT 98
[2022-01-10] MEDS: LACTATED RINGERS 1,000 ML 150 ML IV CONT (07:04)
--- NOTE | 2022-01-10 07:25 | PM.IMHP ---
H&P: HPI History of Present Illness Date/Time: 01/10/22 07:25 Chief Complaint: Colonoscopy an EGD. Narrative: This is a 36-year-old white female patient who has multiple complaints. She has had left upper quadrant discomfort that appears to have improved on discontinuing potassium supplements. She has had intermittent heartburn and evidence for acid reflux. This is improved on starting omeprazole 20mg p.o. daily. Patient has irregular bowel movements with diarrhea alternating with constipation she does have mucus in her stools. She continues to have difficulty with this occasionally will have a small amount of bright red blood per rectum. Colonoscopy an EGD been requested will be performed today. [facility] Past Medical History Medical History Anxiety Mitral valve prolapse Obesity PONV (postoperative nausea and vomiting) Uterine prolapse Surgical History Surgical History History of cholecystectomy History of hysterectomy Social History Social History Smoking status: Never smoker Alcohol intake: never Substance use: never Substance use type: does not use Living arrangements: with family Additional occupation/education comments: Stay at home mom Gender identity (if verbalized by the patient): Female Sexual Orientation (if Verbalized by the Patient): Straight or Heterosexual Spiritual care concerns: No Meds Home Medications and Allergies Home Medications Medication Instructions Recorded Confirmed Type epinephrine 0.3 mg/0.3 mL 0.3 mg (0.3 mL) IM ONCE PRN 05/02/21 12/28/21 Rx injection, auto-injector (EpiPen anaphylaxis or severe allergic 2-Dusty) reaction #2 ea lorazepam 0.5 mg tablet (Ativan) 0.5 mg PO BID PRN anxiety #30 tabs 10/11/21 12/28/21 Rx sertraline 100 mg tablet 100 mg PO HS #30 tabs 11/05/21 12/28/21 Rx hydrochlorothiazide 25 mg tablet 25 mg PO DAILY 11/22/21 12/28/21 History omeprazole 20 mg capsule,delayed 20 mg PO DAILY #30 caps 12/04/21 12/28/21 Rx release Allergies Allergy/AdvReac Type Severity Reaction Status Date / Time Cephalosporins Allergy Severe Anaphylaxis Verified 01/10/22 06:52 doxycycline Allergy Severe Hives and Verified 01/10/22 06:52 SOB Penicillins Allergy Severe Anaphylaxis Verified 01/10/22 06:52 pomegranate Allergy Severe Anaphylaxis Verified 01/10/22 06:52 vancomycin Allergy Intermediate Itching Verified 01/10/22 06:52 Vital Signs Vital Signs - 24 hr 01/10/22 06:55 Temperature 97.2 F L Pulse Rate 100 Respiratory Rate 18 Blood Pressure 117/80 Pulse Oximetry 98 Oxygen Delivery Room Air Exam Narrative: Physical exam reveals patient to be alert. Vital signs stable. HEENT exam is unremarkable. Patient is anicteric. Lungs are clear to auscultation and percussion. Heart is without murmur or extra sounds. Abdominal exam bowel sounds present soft nontender with no hepatosplenomegaly. Digital external rectal exam normal. Assessment and Plan Assessment and plan (1) IBS (irritable bowel syndrome): Code(s): K58.9 - Irritable bowel syndrome without diarrhea Status: Acute Assessment and Plan: Patient with IBS manifested by alternating diarrhea constipation. Likely constipation contributes to rectal bleeding. Plan is for fiber supplementation. Colonoscopy is requested will be performed to exclude organic disease. (2) Hematochezia: Code(s): K92.1 - Melena Status: Acute Assessment and Plan: Patient notes occasional bright red blood per rectum. High-fiber diet stool softener may be of benefit colonoscopy to evaluate has been requested will be performed. (3) Heartburn: Code(s): R12 - Heartburn Status: Acute Assessment and Plan: Patient has heartburn. Well controlled with omeprazole. EGD is req
--- NOTE | 2022-01-10 07:39 | WPDANESEPPF ---
Anes - Initial Pre Proc Eval Procedure: Operation Date: 01/10/22 08:00 Proposed Procedures p Esophagogastroduodenoscopy & Colonoscopy - Shon Smallwood MD Date/Time: 01/10/22 07:39 Surgeon: Shon Smallwood MD Pre Op Diagnosis: GERD, LUQP, diarrhea Patient Data Age: 36 Gender: F Height: 1.63 m Weight: 91.3 kg Last Vital Signs Temp 97.2 F L 01/10/22 06:55 Pulse 100 01/10/22 06:55 Resp 18 01/10/22 06:55 BP 117/80 01/10/22 06:55 Pulse Ox 98 01/10/22 06:55 O2 Del Method Room Air 01/10/22 06:55 Allergies Allergy/AdvReac Type Severity Reaction Status Date / Time Cephalosporins Allergy Severe Anaphylaxis Verified 01/10/22 06:52 doxycycline Allergy Severe Hives and Verified 01/10/22 06:52 SOB Penicillins Allergy Severe Anaphylaxis Verified 01/10/22 06:52 pomegranate Allergy Severe Anaphylaxis Verified 01/10/22 06:52 vancomycin Allergy Intermediate Itching Verified 01/10/22 06:52 Home Medications Medication Instructions Recorded Confirmed Type epinephrine 0.3 mg/0.3 mL 0.3 mg (0.3 mL) IM ONCE PRN 05/02/21 12/28/21 Rx injection, auto-injector (EpiPen anaphylaxis or severe allergic 2-Dusty) reaction #2 ea lorazepam 0.5 mg tablet (Ativan) 0.5 mg PO BID PRN anxiety #30 tabs 10/11/21 12/28/21 Rx sertraline 100 mg tablet 100 mg PO HS #30 tabs 11/05/21 12/28/21 Rx hydrochlorothiazide 25 mg tablet 25 mg PO DAILY 11/22/21 12/28/21 History omeprazole 20 mg capsule,delayed 20 mg PO DAILY #30 caps 12/04/21 12/28/21 Rx release Patient hx anesthesia problems: none Family hx anesthesia problems: none Results Review: All pre-operative results and documents have been reviewed as part of the pre-operative evaluation. [facility] Past Medical History Medical History Anxiety Mitral valve prolapse Obesity PONV (postoperative nausea and vomiting) Uterine prolapse Surgical History Surgical History History of cholecystectomy History of hysterectomy Social History Social History Smoking status: Never smoker Alcohol intake: never Substance use: never Substance use type: does not use Living arrangements: with family Additional occupation/education comments: Stay at home mom Gender identity (if verbalized by the patient): Female Sexual Orientation (if Verbalized by the Patient): Straight or Heterosexual Spiritual care concerns: No Anes - Eval Final PreProcedure Day of Procedure 01/10/22 07:39 Patient weight: obese Heart: regular rate and rhythm Lungs: clear to auscultation Airway: Mallampati scale class II Neurological: alert and oriented Last oral intake: >/= 8 hours ASA classification: II Emergent: no Anesthetic plan: proceed Anesthesia type and monitoring: general GIVS and standard monitoring Results Review: All pre-operative results and documents have been reviewed as part of the pre-operative evaluation. Informed Consent: The patient's anesthetic plan and its attendant risks and benefits were discussed with the patient/family/POA. Questions were solicited and answers provided to the satisfaction of the patient/family/POA.
--- NOTE | 2022-01-10 08:24 | SUR.OPER ---
EGD started at 0805 and ended at 08. Colonoscopy started at 08 and ended at 0824.
[2022-01-10 08:28] VITALS: BP 107/72; PULSE 81; RESP 23; O2SAT 96
[2022-01-10 08:38] VITALS: BP 120/85; PULSE 70; RESP 21; O2SAT 98
[2022-01-10 08:48] VITALS: BP 125/88; PULSE 73; RESP 20; O2SAT 99
== END 2022-01-10 08:59 | disposition home or self-care (01) ==
PROVIDERS: PCP Family Medicine; Visit Provider Internal Medicine Gastroenterology
PROC: 0DJ08ZZ Inspection of Upper Intestinal Tract, Via Natural or Artificial Opening Endoscopic (ICD-10-PCS; CPT 43235; principal; 2022-01-10 08:00)
DX: K62.5 Hemorrhage of anus and rectum (principal); K64.8 Other hemorrhoids; K58.9 Irritable bowel syndrome, unspecified; R12 Heartburn; F41.9 Anxiety disorder, unspecified; I34.1 Nonrheumatic mitral (valve) prolapse; E66.9 Obesity, unspecified; Z68.34 Body mass index [BMI] 34.0-34.9, adult
CPT/HCPCS: 45378; 43239; 87081; J2704; J7120

== ENCOUNTER 2022-03-15 10:14 | Outpatient (CLI) | payer OTHER, SELFPAY ==
--- NOTE | ~2022-03-15 | XR_ITS ---
EXAMINATION: XR abdomen/kub 1V DATE: 03/15/2022 10:37 INDICATION: Bilateral renal stones TECHNIQUE: A supine view of the abdomen on 2 radiographs was obtained. COMPARISON: 09/12/2021 FINDINGS: Unchanged 3 mm stone at the lower pole of the left kidney. No other evident urolithiasis. Moderate to large amount of stool scattered throughout the colon. No dilated gas-filled loops of bowel to sugges t obstruction. Cholecystectomy clips in right upper quadrant. Hypoplastic riblets at T12 with 4 more caudal nonrib-bearing lumbar segments. IMPRESSION: 1. Unchanged 3 mm stone at the lower pole of the left kidney. Reviewed, dictated and finalized at location B.
== END 2022-03-15 10:15 | disposition home or self-care (01) ==
PROVIDERS: PCP Family Medicine; Visit Provider Urology
DX: N20.0 Calculus of kidney (principal)
CPT/HCPCS: 74018

== ENCOUNTER 2022-10-09 13:12 | Outpatient (CLI) | payer OTHER, SELFPAY ==
--- NOTE | ~2022-10-09 | XR_ITS ---
Left foot Technique: AP, oblique, and lateral views were obtained. Clinical History: Injury Findings: No acute fracture or dislocation is seen. Osseous alignment is anatomic. Joint spaces are p reserved without erosive or degenerative change. Soft tissues are unremarkable. Impression: Unremarkable left foot radiographs. Reviewed, dictated and finalized at location . Impression: Unremarkable left foot radiographs.
--- NOTE | ~2022-10-09 | XR_ITS ---
Left ankle Technique: AP, oblique, and lateral views were obtained. Clinical History: Pain Findings: No acute fracture or dislocation is seen. Osseous alignment is anatomic. Ankle mortise and other visualized joint spaces are preserved. Soft tissues are otherwise unremarkable. Impression: Unremarkable left ankle. Reviewed, dictated and finalized at location . Impression: Unremarkable left ankle.
== END 2022-10-09 13:13 ==
LOC: MICIMG 13:14
PROVIDERS: PCP Family Medicine; Visit Provider Physician Assistant
DX: S99.922A Unspecified injury of left foot, initial encounter (principal); X58.XXXA Exposure to other specified factors, initial encounter
CPT/HCPCS: 73610; 73630

== ENCOUNTER 2023-01-30 10:12 | Outpatient (CLI) | payer OTHER, SELFPAY ==
--- NOTE | ~2023-01-30 | XR_ITS ---
EXAMINATION: XR abdomen/kub 1V INDICATION: Bilateral renal stones TECHNIQUE: Supine views of the abdomen were obtained on 2 radiographs. COMPARISON: 03/15/2022 FINDINGS: Bowel contents project over the right kidney limiting sensitivity for renal stones. There i s a 3 mm stone of the left kidney which is grossly unchanged. No stones are identified along the expe cted courses of the ureters or within the urinary bladder. Cholecystectomy clips are noted. The bowel gas pattern is normal. IMPRESSION: 1. Stable left nephrolithiasis. Reviewed, dictated and finalized at location L.
== END 2023-01-30 10:13 | disposition home or self-care (01) ==
PROVIDERS: PCP Family Medicine; Visit Provider Nurse Practitioner Adult Health
DX: N20.0 Calculus of kidney (principal)
CPT/HCPCS: 74018

== ENCOUNTER 2023-06-23 09:15 | Outpatient (CLI) | payer OTHER, SELFPAY ==
--- NOTE | ~2023-06-23 | CT_ITS ---
Non-contrast CT scan of the Abdomen and Pelvis Clinical indication: Left upper quadrant pain Technique: 2.5 mm axial scans were obtained through the abdomen and pelvis without intravenous or or al contrast. Dose reduction technique was used on this scan by utilizing automated exposure control a nd iterative reconstruction technique. The dose-length product (DLP) was 998.20 mGy-cm. COMPARISON: 03/05/2021 Findings: Images through the lung bases reveal no abnormalities. Bilateral nonobstructing renal stones are present. No ureteral stone or hydronephrosis on either side . The liver, spleen, pancreas, and adrenals appear normal. Cholecystectomy clips are present. There is no aortic aneurysm. There is no evidence of bowel obstruction. Normal appendix. Images through the pelvis were performed. There is no evidence of ascites or lymphadenopathy. Urinary bladder unremarkable. No pelvic mass seen. No ascites. Impression: Bilateral nonobstructing renal stones. Reviewed, dictated and finalized at [facility]. [employer] Impression: Bilateral nonobstructing renal stones.
== END 2023-06-23 09:16 ==
PROVIDERS: PCP Physician Assistant; Visit Provider Physician Assistant
DX: R10.12 Left upper quadrant pain (principal); R11.0 Nausea; R19.4 Change in bowel habit; N20.0 Calculus of kidney
CPT/HCPCS: 74176

== ENCOUNTER 2023-08-04 08:59 | Outpatient (CLI) | payer OTHER, SELFPAY ==
--- NOTE | ~2023-08-04 | MR_ITS ---
EXAMINATION: MR ankle LT wo con DATE: 08/04/2023 09:33 INDICATION: Peroneal tendinitis with lateral left ankle pain TECHNIQUE: Magnetic resonance imaging (MRI) of the left ankle was performed without intravenous contr ast. Sequences included sagittal, coronal, and axial proton-density weighted fast spin echo without a nd with fat saturation. COMPARISON: None. FINDINGS: Medial ankle ligaments: Deltoid ligament is normal. There is thickening of the anterior superficial deltoid ligament and supe romedial component of the spring ligament complex consistent with scarring related to chronic sprains . The infra plantar lateral and medial plantar oblique component of the spring ligament complex remai n normal. Lateral ankle ligaments: The anterior and posterior inferior tibiofibular ligaments are normal. The anterior talofibular, calc aneofibular and posterior talofibular ligaments are normal. Tendons: Achilles tendon is normal. The peroneus longus and brevis tendons are normal. The tibialis anterior a nd extensor hallucis longus and extensor digitorum longus tendons are normal. The tibialis posterior, flexor digitorum longus and flexor hallucis longus tendons are normal. Plantar fascia: Mild thickening of the proximal plantar aponeurosis with some edema within a moderate-sized enthesoph yte at its calcaneal origin persistent minimal acute plantar fasciitis superimposed over mild chronic enthesopathy. Bones/other: Bone alignment is normal. No fracture or pathologic marrow replacing process. There is mild osteoarth ritis at a few of the tarsal metatarsal joints. Lisfranc ligament complex is normal. Fluid: Physiologic amount fluid in the joint spaces and tendon sheaths. No abnormal fluid collections identi fied. IMPRESSION: 1. Mild scarring consistent with chronic sprains involving the anterior superficial deltoid ligament and the superomedial component of the spring ligament complex. 2. 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 Reviewed, dictated and finalized at location A. IMPRESSION: 1. Mild scarring consistent with chronic sprains involving the anterior superfi cial deltoid ligament and the superomedial component of the spring ligament com plex. 2. 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
== END 2023-08-04 09:00 ==
LOC: MICIMG 09:01
PROVIDERS: PCP Podiatrist Foot & Ankle Surgery; Visit Provider Podiatrist Foot & Ankle Surgery
DX: M76.72 Peroneal tendinitis, left leg (principal)
CPT/HCPCS: 73721

== ENCOUNTER 2024-01-03 13:00 | Outpatient (CLI) | payer OTHER, SELFPAY ==
[2024-01-03 13:30] LABS: Anion Gap 8 mmol/L (4-12); Blood Urea Nitrogen 12 mg/dL (7-17); Calcium 9.2 mg/dL (8.4-10.2); Carbon Dioxide 30 mmol/L (22-30); Chloride 98 mmol/L (98-107); Estimated Glomerular Filt Rate > 60; Glucose 114 mg/dL (65-110); Potassium 3.6 mmol/L (3.4-5.0); Sodium 136 mmol/L (137-145)
== END 2024-01-03 13:01 | disposition home or self-care (01) ==
LOC: ANHLAB 13:02
PROVIDERS: PCP Family Medicine; Visit Provider Anesthesiology
DX: N20.0 Calculus of kidney (principal); Z01.818 Encounter for other preprocedural examination
CPT/HCPCS: 36415; 80048

== ENCOUNTER 2024-01-09 00:52 | Day surgery (SDC) | payer OTHER, SELFPAY ==
[2024-01-02 15:18] VITALS: BMI 37.8
--- NOTE | 2024-01-02 15:27 | PC.NURSE ---
Report to the Outpatient Waiting Room, entrance under the green pavilion located off [facility], at time 0700_ on date _01/09/24. Planned Procedure Time: __0900_.? Time changes happen often and if your time is changed the preop area will call you the afternoon before. - You and your visitor will be asked to self-screen and do not enter if you have any COVID symptoms. Please call surgeon if you need to reschedule. - A mask is optional within the hospital at this time. Patients may have clear liquids (water, carbonated beverages, clear teas, apple juice) until 3 hours prior to surgery with a maximum of 20 ounces. - No food from midnight until time of surgery and no smoking - Infants may have breast milk until 4 hours before surgery, infant formula 6 hours prior to surgery. - Children will be allowed to drink immediately following surgery.? If applicable, please bring a bottle or sippy cup to assist with drinking. Juice, water, soda, and popsicles are readily available.? For infants on formula, please bring formula the day of surgery.? Pacifiers are allowed. Take only the following medications with a SIP of water on the morning of surgery: ANXIETY MEDICATION IF NEEDED DO NOT STOP ANY OF YOUR OTHER PRESCRIPTION MEDICATIONS PRIOR TO SURGERY EXCEPT THE FOLLOWING Medications to discontinue per physician VITAMIN Date to take last dose 01/06/24 Please no make-up, nail north korean, hairspray, perfume, deodorant, or body powder the day of surgery.? No jewelry (including any body piercings) or valuables the day of surgery, leave them at home.? Please take a shower or bath the night before, or the morning of, surgery with an antibacterial soap.? Wear comfortable, loose fitting clothing.? Children are encouraged to wear pajamas. - Jewelry must be removed prior to entering the operating room.? Rings and piercings that are not removed may be cut off. - The hospital will not accept responsibility for valuables.? - Please leave all valuables, including medications, at home the day of surgery. If you are going home after surgery, a licensed racecar driver must drive you home.? - NO public transportation without another adult if you receive anesthesia. - We recommend that an adult stay with you for 24 hours following discharge. - We also recommend that you do not drive, make important decision, drink alcoholic beverages, or take any drugs that were not prescribed by your health care provider for at least 24 hours after your discharge time. For Pediatric surgeries, we recommend two adults accompany the child home. Follow any additional instructions given to you from your surgeon. Telephone instructions given to _PATIENT__and asked if any additional questions and then verbalized understanding. Patient advised to call surgeon office or pre surgery nurse liaison [phone] if any additional questions.
[2024-01-09] VITALS (9 sets, daily range): BP systolic 114–147; BP diastolic 71–100; PULSE 76–95; RESP 12–18; TEMP 36.4–36.8; O2SAT 95–100
--- NOTE | ~2024-01-09 | XR_ITS ---
EXAMINATION: XR surgery orthopedic DATE: 01/09/2024 10:35 INDICATION: Excision of a left foot os trigonum TECHNIQUE: A single lateral spot fluoroscopic image of the left ankle was obtained during procedure p erformed by Dr. Garcia. Radiologist was not present for the imaging or procedure. The amount of flu oroscopy time used during this procedure was 0.2 minutes. COMPARISON: 10/09/2022 FINDINGS: Increased lucency the soft tissues posterior to the talus likely related to soft tissue gas at the op erative bed. Bone alignment is normal. No fracture. Joint spaces are unremarkable. IMPRESSION: 1. Fluoroscopy utilized during orthopedic procedure at the left hindfoot. See procedure note for furt her detail. Reviewed, dictated and finalized at location A. IMPRESSION: 1. Fluoroscopy utilized during orthopedic procedure at the left hindfoot. See p rocedure note for further detail.
--- NOTE | 2024-01-09 07:20 | WPDHPUPDATE1 ---
History and Physical Update Update Date/Time: 01/09/24 07:20 History and Physical has been reviewed, including an updated exam of the patient. There are NO changes in the patient's condition. Risks, benefits, and alternatives have been discussed and questions answered. Patient agrees to proceed with procedure.
--- NOTE | 2024-01-09 07:21 | WPDANESEPPF ---
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 Patient Data Age: 38 Gender: F Height: 1.63 m Weight: 99.49 kg Last Vital Signs Temp 36.8 C 01/09/24 07:17 Pulse 86 01/09/24 07:17 Resp 16 01/09/24 07:17 BP 127/84 01/09/24 07:17 Pulse Ox 99 01/09/24 07:17 O2 Del Method Room Air 01/09/24 07:17 Allergies Allergy/AdvReac Type Severity Reaction Status Date / Time Cephalosporins Allergy Severe Anaphylaxis Verified 01/09/24 07:15 doxycycline Allergy Severe Hives and Verified 01/09/24 07:15 SOB Penicillins Allergy Severe Anaphylaxis Verified 01/09/24 07:15 pomegranate Allergy Severe Anaphylaxis Verified 01/09/24 07:15 vancomycin Allergy Intermediate Itching Verified 01/09/24 07:15 Home Medications Medication Instructions Recorded Confirmed Type epinephrine 0.3 mg/0.3 mL 0.3 mg (0.3 mL) IM ONCE PRN 05/02/21 01/09/24 Rx injection, auto-injector (EpiPen anaphylaxis or severe allergic 2-Dusty) reaction #2 ea cetirizine 10 mg tablet (Zyrtec) 10 mg PO DAILY PRN Allergy Symptoms 07/11/22 01/09/24 History hydroxyzine HCl 25 mg tablet 25 mg PO BID PRN panic attack(s) 07/11/22 01/09/24 Rx #30 tabs Saccharomyces boulardii 250 mg 250 mg PO DAILY 10/22/22 01/09/24 History capsule (Daily Probiotic (S. boulardii)) cholecalciferol (vitamin D3) 25 50 mcg PO DAILY 04/22/23 01/09/24 History mcg (1,000 unit) capsule omeprazole 20 mg capsule,delayed 20 mg PO .PRN PRN REFLUX 04/22/23 01/09/24 History release dicyclomine 20 mg tablet 20 mg PO QID PRN abdominal pain 06/16/23 01/09/24 Rx #60 tabs lorazepam 0.5 mg tablet (Ativan) 0.5 mg PO BID PRN anxiety #30 tabs 06/16/23 01/09/24 Rx sertraline 50 mg tablet 50 mg PO DAILY #90 tabs 08/20/23 01/09/24 Rx hydrochlorothiazide 25 mg tablet See Rx Instructions .Route 10/21/23 01/09/24 Rx .COMPLEX #30 tabs Patient hx anesthesia problems: none Family hx anesthesia problems: none Results Review: All pre-operative results and documents have been reviewed as part of the pre-operative evaluation. [facility] Past Medical History Medical History Anxiety Mitral valve prolapse Obesity PONV (postoperative nausea and vomiting) Uterine prolapse Surgical History Surgical History History of cholecystectomy History of hysterectomy Social History Social History Smoking status: Never smoker Alcohol intake: current Alcohol use details: VERY RARE USE Substance use: never Substance use type: does not use Do You Feel Safe in your Home?: Yes Lack of Transportation: No Lack of Food: Never True Current Housing: I Have Housing Concerned About Future Housing: No Difficulty Paying Gas/Electric Bills: No Difficulty Paying for Meds: No Currently Unemployed: No Education: Bachelor's Degree Difficulty w/ Childcare or Family Care: No Living arrangements: with family Occupation/Education: other Additional occupation/education comments: Stay at home mom Gender identity (if verbalized by the patient): Female Sexual Orientation (if Verbalized by the Patient): Straight or Heterosexual Spiritual care concerns: No Anes - Eval Final PreProcedure Day of Procedure 01/09/24 07:21 Patient weight: obese Heart: regular rate and rhythm Lungs: clear to auscultation Airway: Mallampati scale class II Neurological: alert and oriented Last oral intake: >/= 8 hours ASA classification: II Emergent: no Anesthetic plan: proceed Anesthesia type and monitoring: general ETT and standard monitoring Results Review: All pre-operative results and doc
[2024-01-09] MEDS: LACTATED RINGERS 1,000 ML 30 ML IV CONT (07:25)
[2024-01-09] MEDS: LIDOCAINE HCL 2% PF INJ 5 ML VIAL 10 ML INFILTRATE (08:35)
[2024-01-09] MEDS: CLINDAMYCIN 900 MG/D5W 50 ML 900 MG/50 ML PIGGYBACK 50 MG IVPB (09:25)
--- NOTE | 2024-01-09 10:47 | W.PM.PROC2 ---
Procedure Note - Detailed Date of Procedure 01/09/24 Pre-op Diagnosis Painful prominent Lateral Talar Process left foot Post-op Diagnosis Same Procedure Performed Resection of prominent lateral talar process left foot Surgeon Jabari Garcia Jr., DPM Anesthesia General and Local Indications Painful lateral ankle/hinfoot along prominet lateral posterior talar process Findings Prominent posterior lateral talar process left foot Description of Procedure Under mild sedation, the patient was brought to the operating room, placed on the operating table in the prone position. A pneumatic thigh tourniquet was placed about the patient's left thigh. Following General sedation, I performed a common peroneal nerve block with 20ccs of 2% Lidocaine plain and 0.5% Marcaine plain. The foot was scrubbed, prepped, and draped in the usual aseptic manner. An Esmarch bandage was then used to examine the patient's foot and pneumatic ankle tourniquet was then inflated. Surgery began in the following manner. Attention was noted the posterior left hindfoot/distal leg where a 3cm incision was made just lateral to the insertional Achilles tendon. I dissected down deep to the posterior lateral capsule periosteum of the subtalar joint. All bleeders were ligated and cauterized as necessary. I identified the prominent lateral talar process and resected it under fluoroscopic guidance with and osteotomy and mallet. The fragment of bone was removed in toto and passed from the operative site and discarded. I used a chahal rasp to smooth out all edges. I was able to easily plantarflex the foot post debridement of the hypertrophic posterior lateral process of the talus. The wound was flushed with copious amounts of sterile saline. Next, the subcutaneous structures were reaproximated with 4.0 Vicryl in simple interrupted suture fashion technique. The skin was then reapproximated with 4.0 Monocryl in running subcuticular suture fashion technique. Upon completion of the procedure, the incision was dressed with Adaptic, 4 x 4's, Kerlix, and Coban. The pneumatic thigh tourniquet was then deflated and a prompt hyperemic response noted to all digits of the foot. A CAM walker boot will be applied post operativelly the patient will remain non weight bearing for one week followed by protected weight bearing for an additional two weeks. The patient did very well with the procedure and the anesthesia. The patient was transferred to the recovery room with vital signs stable and vascular status intact to all toes of the affected foot. Following a period of postoperative monitoring, the patient will be discharged home on the following written and oral postoperative instructions: 1. Keep the dressing clean, dry, and intact. Use a cast protector bag with showers. 2. The patient should use a surgical shoe for ambulation postoperatively. 3. The patient should be on bedrest with bathroom privileges and elevate the affected foot when at rest. 4. The patient to contact Dr. Garcia for all postop care and if any problems arise. 5. The patient will take Percocet 5/ 325mg every 4 to 6 hours as neede for severe pain after surgery. Estimated Blood Loss 1 Drains No Packing No Pathology None sent Complications No immediate complications Condition Stable Disposition Same day
[2024-01-09] MEDS: fentaNYL CITRATE INJ (*CRX) 100 MCG/2 ML VIAL 25 MCG IV PUSH ×2 (11:27→11:31)
[2024-01-09] MEDS: oxyCODONE HCL (*CRX) 5 MG TAB IR PO (12:30)
== END 2024-01-09 13:13 | disposition home or self-care (01) ==
PROVIDERS: PCP Family Medicine; Visit Provider Podiatrist Foot & Ankle Surgery
PROC: (CPT 28120; principal; 2024-01-09 09:00)
DX: M25.872 Other specified joint disorders, left ankle and foot (principal); I34.1 Nonrheumatic mitral (valve) prolapse; F41.9 Anxiety disorder, unspecified; E66.9 Obesity, unspecified; Z68.37 Body mass index [BMI] 37.0-37.9, adult
CPT/HCPCS: 28120; 36415; 80048; 99199; A9270; J0330; J1100; J2250; J2405; J2704; J3010; J7120